=== PATIENT | male | born 1945 | race Caucasian/White ===

== ENCOUNTER 2018-06-03 10:07 | Emergency (ER) | payer OTHER ==
[2018-06-03 10:11] VITALS: RESP 18
--- NOTE | 2018-06-03 10:40 | ED ---
Extremity Problem HPI - General Chief complaint: Extremity Problem,Nontraumatic Stated complaint: RT KNEE PAIN AND SWELLING Time Seen by Provider: 06/03/18 10:15 Source: patient, RN notes reviewed, old records reviewed Mode of arrival: wheelchair Limitations: physical limitation - History of Present Illness Initial comments: Patient is a 72-year-old male who complains of right knee pain and medial swelling for the past month. He had a left [id number] amputee from [place]. Patient states that he has always had chronic wear and tear of the right knee. Patient reports he has not seen an orthopedic doctor. Patient states that he has no peripheral paresthesias. He denies any known trauma to the knee. Patient denies any thigh or hip pain. - Related Data Home Medications Medication Instructions Recorded Confirmed Losartan-Hctz 50-12.5 mg [Hyzaar 1 tab PO DAILY 06/03/18 06/03/18 50-12.5] Multivitamins, Thera [Multivitamin 1 tab PO DAILY 06/03/18 06/03/18 (formulary)] Naproxen Sodium [Aleve] 660 mg PO DAILY PRN 06/03/18 06/03/18 Simvastatin [Zocor] 20 mg PO DAILY 06/03/18 06/03/18 amLODIPine [Norvasc] 10 mg PO DAILY 06/03/18 06/03/18 Previous Rx's Medication Instructions Recorded Naproxen [Naprosyn] 500 mg PO Q12HR #20 tab 06/03/18 Allergies Allergy/AdvReac Type Severity Reaction Status Date / Time No Known Allergies Allergy Verified 06/03/18 10:30 Review of Systems ROS Statement: Those systems with pertinent positive or pertinent negative responses have been documented in the HPI. ROS Other: All systems not noted in ROS Statement are negative. Past Medical History Past Medical History: Hyperlipidemia, Hypertension Additional Past Medical History / Comment(s): prosthetic leg History of Any Multi-Drug Resistant Organisms: None Reported Past Surgical History: Appendectomy, Orthopedic Surgery Additional Past Surgical History / Comment(s): LBKA Past Psychological History: No Psychological Hx Reported Smoking Status: Former smoker Past Alcohol Use History: Occasional Past Drug Use History: None Reported General Exam - General Exam Comments Initial Comments: 72-year-old male. Alert and oriented. No significant distress. Limitations: physical limitation General appearance: alert, in no apparent distress Head exam: Present: atraumatic, normocephalic, normal inspection Eye exam: Present: normal appearance, PERRL, EOMI. Absent: scleral icterus, conjunctival injection, periorbital swelling ENT exam: Present: normal exam, mucous membranes moist Neck exam: Present: normal inspection. Absent: tenderness, meningismus, lymphadenopathy Respiratory exam: Present: normal lung sounds bilaterally. Absent: respiratory distress, wheezes, rales, rhonchi, stridor Cardiovascular Exam: Present: regular rate, normal rhythm, normal heart sounds. Absent: systolic murmur, diastolic murmur, rubs, gallop, clicks GI/Abdominal exam: Present: soft, normal bowel sounds. Absent: distended, tenderness, guarding, rebound, rigid Extremities exam: Present: other (Patient is a left exfkk-[id number] amputee.) Right Upper Leg exam: Present: normal inspection, full ROM Knee exam: Present: tenderness, swelling (over medial aspect of knee). Absent: normal inspection Lower Leg exam: Present: normal inspection, full ROM Ankle exam: Present: normal inspection, full ROM Neurovascular tendon exam: Present: no vascular compromise Back exam: Present: normal inspection Neurological exam: Present: alert, oriented X3, CN II-XII intact Psychiatric exam: Present: normal affect, normal mood Skin exam: Present: warm, dry, intact, normal color. Absent: rash Course Vital Signs 06/03/18 06/03/18 10:09 11:49 Temperature 97.8 F 97.2 F L Pulse Rate 67 65 Respiratory 18 18 Rate Blood Pressure 153/74 137/72 O2 Sat by Pulse 98 94 L Oximetry Medical Decision Making - Medical Decision Making Asians a 72-year-old male who presents emergency Department today with complaints of right knee pain for the past month. Patient has evidence of significant medial knee effusion. 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 Patient's x-ray shows evidence of possible AVM versus venous insufficiency fracture of the articular surface of the medial condyle. There is medial sided soft tissue swelling concerns her minuscule injury or MCL injury. There is medial and patellofemoral compartment arthrosis. There is moderate knee joint effusion raising suspicion for internal derangement. MRI could further assess. Patient was informed of these findings. Patient was offered knee immobilizer and advised orthopedic follow-up. Discussed taking anti-inflammatory medication and icing the knee. Discussed that he needs to follow with orthopedic in regards to these findings and may need knee replacement. - Radiology Data Radiology results: report reviewed Possible AVM versus insufficiency fracture articular surface of the medial femoral condyle. Medial subsided soft tissue swelling underlying extruded tear of the medial meniscus or MCL. Underlying medial patellar femoral compartment osteoarthritis. Moderate knee effusion raises suspicion for internal derangement. MRI to further assess. Disposition Clinical Impression: Swollen R knee, Femoral abnormality Disposition: HOME SELF-CARE Condition: Good Instructions (If sedation given, give patient instructions): Knee Pain (ED), Swollen Knee Joint (ED) Additional Instructions: Patient has a follow-up with systems specialist. Take the medication as prescribed. Return to emergency department if any alarming signs or symptoms occur. Prescriptions: Naproxen [Naprosyn] 500 mg PO Q12HR #20 tab Is patient prescribed a controlled substance at d/c from ED?: No Referrals: Delfino Mccann MD [Primary Care Provider] - 1-2 days Dwight Bland DO [Doctor of Osteopathic Medicine] - 1-2 days Aldo Bryant DO [Doctor of Osteopathic Medicine] - 1-2 days Time of Disposition: 12:15
--- NOTE | 2018-06-03 11:21 | XR ---
EXAMINATION TYPE: XR knee complete RT DATE OF EXAM: 06/03/2018 COMPARISON: NONE HISTORY: 72-year-old male right knee pain for one month TECHNIQUE: 3 views FINDINGS: Medial sided soft tissue swelling. Degenerative spurring in the medial compartment. Subchondral lucen cy focally along the weightbearing the medial femoral condyle. Moderate knee joint effusion. Extensor mechanism appears intact. Generous spurring patellofemoral compartment. IMPRESSION: 1. Possible AVN versus insufficiency fracture articular surface of the medial femoral condyle. 2. Medial sided soft tissue swelling. There could be underlying extruded tear of the medial meniscus or MCL injury. 3. Underlying medial and patellofemoral compartmental osteoarthrosis. 4. Moderate knee joint effusion raises suspicion for internal derangement. MRI could further assess.
[2018-06-03 11:50] VITALS: BP 137/72; PULSE 65; TEMP 97.2
[2018-06-03] MEDS ORDERED: ACET/COD 300 MG/30 MG STARTER PACK 6 TAB BTL PO STA (12:15)
== END 2018-06-03 12:33 | disposition home or self-care (01) ==
LOC: EC 10:07
DX: M79.89 Other specified soft tissue disorders (principal); M89.8X5 Other specified disorders of bone, thigh; M25.461 Effusion, right knee; M17.11 Unilateral primary osteoarthritis, right knee; E78.5 Hyperlipidemia, unspecified; I10 Essential (primary) hypertension; Z87.891 Personal history of nicotine dependence; Z79.899 Other long term (current) drug therapy; Z89.612 Acquired absence of left leg above knee
CPT/HCPCS: 73562; 99284; L1830

== ENCOUNTER → 2018-06-30 | Outpatient (CLI) | payer OTHER ==
--- NOTE | 2018-07-01 13:15 | MR ---
EXAMINATION TYPE: MR knee RT wo con DATE OF EXAM: 06/30/2018 COMPARISON: Right knee x-rays dated 06/03/2018 HISTORY: Rt knee pain x 6 months, OA TECHNIQUE: Multiplanar, multisequence imaging of the right knee is performed without IV contrast. FINDINGS: MEDIAL MENISCUS: There is meniscal degeneration of the medial meniscus in addition to a radial tear o f the free air and longitudinal tear of the body extending into the posterior horn with associated 5 mm meniscal extrusion. LATERAL MENISCUS: Anterior and posterior horns are intact without tear. CRUCIATE LIGAMENTS: There is a near full-thickness tear of the anterior cruciate ligament with only d iminutive fibers remaining. Posterior cruciate ligament appears intact and unremarkable. COLLATERAL LIGAMENTS: The medial collateral ligament and lateral collateral ligament complex are inta ct. There is high signal overlying the medial collateral ligament and deep to the medial collateral l igament without discontinuity relating to mid grade strain. Soft tissue swelling also seen overlying the medial collateral ligament. EXTENSOR MECHANISM: Visualized quadriceps and patellar tendons are intact. EFFUSION: There is a small suprapatellar joint effusion with minimal complexity indicating synovitis . There is a focal protrusion of this complex fluid medial to the vastus medialis with surrounding in tramuscular edema. POPLITEAL CYST: No popliteal/hart cyst. TRICOMPARTMENT SPACES: There is medial compartment joint space narrowing and small tricompartmental o steophytes. CARTILAGE: There is full-thickness cartilaginous loss of the medial femoral condyle in its weightbear ing surface measuring 2.8 x 2.4 cm and of the corresponding tibial plateau measuring approximately 1. 8 cm. There is signal heterogeneity the remaining anterior femoral condyle and medial tibial plateau cartilage. In the lateral compartment there is generalized heterogeneity and thinning of the cartilage without f ocal defect. In the patellofemoral compartment there is only mild heterogeneity of the patellofemoral cartilage with slight undermining of the trochlea. BONE MARROW SIGNAL: There is a focal 1.3 cm osseous defect with associated surrounding bone marrow ed natalia of the weightbearing surface of the medial femoral condyle. Suggesting advanced subchondral insuf ficiency fracture. There is also multifocal bone marrow edema within the medial tibial plateau and to a lesser degree of the lateral tibial plateau and lateral femoral condyle. IMPRESSION: 1. Curvilinear 1.3 cm osseous defect of the weightbearing surface of the medial femoral condyle with associated bone marrow edema is most suggestive of an advanced subchondral insufficiency fracture. Ad ditional multifocal bone marrow edema most pronounced within the medial tibial plateau and to a lesse r degree at the lateral tibial plateau and lateral femoral condyle are also seen. 2. Moderate tricompartmental arthrosis and severe chondrosis of the medial compartment with mild cyrus drosis of the lateral and patellofemoral compartments. 3. Complex suprapatellar joint effusion without complexity indicating synovitis and focal protrusion of the medial joint space deep to the vastus medialis resulting in surrounding intramuscular edema. 4. Medial meniscal complex tear with a radial tear and longitudinal tear of the body and posterior ho rn and meniscal extrusion. 5. High-grade partial-thickness tear of the anterior cruciate ligament. 6. Increased signal superficial and deep to the medial collateral ligament suggesting a grade sprain.
== END ==
LOC: RADMRIMAIN 14:57
PROVIDERS: ATTEND Orthopaedic Surgery Sports Medicine
DX: M17.11 Unilateral primary osteoarthritis, right knee (principal); M25.861 Other specified joint disorders, right knee; M65.861 Other synovitis and tenosynovitis, right lower leg; S83.241A Other tear of medial meniscus, current injury, right knee, initial encounter; S83.511A Sprain of anterior cruciate ligament of right knee, initial encounter

== ENCOUNTER 2022-02-20 08:47 | Day surgery (SDC) | payer OTHER ==
[2022-02-15 13:26] VITALS: BMI 33.7
[~2022-02-20 08:47] MED LIST: LACTATED RINGERS 1,000 ML IV SCH; LIDOCAINE 1% (10MG/ML) FOR IV START INTRADERMA PRN
[2022-02-20 09:12] VITALS: TEMP 97.5
[2022-02-20] MEDS ORDERED: PROPOFOL 10 MG/ML 20 ML VIAL IV ONE (09:59)
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
--- NOTE | 2022-02-20 10:34 | P.PCN ---
Date of Procedure: 02/20/22 Procedure(s) Performed: PREOPERATIVE DIAGNOSIS: Colon cancer screening, personal history of polyps POSTOPERATIVE DIAGNOSIS: Rectal polyps 2, diverticulosis PROCEDURE: Colonoscopy with snare polypectomy ANESTHESIA: MAC SURGEON: Carrillo Downing M.D. SPECIMENS: Rectal polyp ENDOSCOPIC PROCEDURE: The patient was placed on the endoscopy table in the left decubitus position. The Olympus colonoscope was inserted into the anus and passed under direct visualization to the base of the cecum. The appendiceal o rifice was visualized. From that point the scope was slowly withdrawn inspecting all surfaces carefully. There were no neoplastic inflammatory or polypoid lesions throughout the cecum, ascending, transverse, descending, and sigmoid colon. In the rectum there were 2 small polyps seen. The patient had mild left-sided diverticulosis. Digital rectal examination was normal. The patient was taken to the recovery room in stable condition per anesthesia guidelines. RECOMMENDATIONS: Await biopsy results. Repeat colonoscopy 5 years.
[2022-02-20 11:01] VITALS: BP 147/87; PULSE 64; RESP 15
== END 2022-02-20 11:30 | disposition home or self-care (01) ==
LOC: ORWHC2ENDO 08:47
PROVIDERS: ATTEND Surgery
DX: Z12.11 Encounter for screening for malignant neoplasm of colon (principal); K62.1 Rectal polyp; K57.30 Diverticulosis of large intestine without perforation or abscess without bleeding; Z80.0 Family history of malignant neoplasm of digestive organs; I10 Essential (primary) hypertension; M19.90 Unspecified osteoarthritis, unspecified site; E78.5 Hyperlipidemia, unspecified; H91.90 Unspecified hearing loss, unspecified ear; Z97.16 Presence of artificial legs, bilateral (complete) (partial); Z90.49 Acquired absence of other specified parts of digestive tract; Z98.890 Other specified postprocedural states; Z96.651 Presence of right artificial knee joint; Z87.891 Personal history of nicotine dependence; F10.20 Alcohol dependence, uncomplicated; Z79.891 Long term (current) use of opiate analgesic; Z79.02 Long term (current) use of antithrombotics/antiplatelets; Z79.01 Long term (current) use of anticoagulants; Z79.1 Long term (current) use of non-steroidal anti-inflammatories (NSAID)
CPT/HCPCS: 88305; 45385; J2704

== ENCOUNTER → 2022-09-25 | Outpatient (CLI) | payer OTHER ==
--- NOTE | 2022-09-25 09:14 | US ---
EXAMINATION TYPE: US abdomen complete DATE OF EXAM: 09/25/2022 COMPARISON: NONE CLINICAL INDICATION: Male, 76 years old with history of R11.2 NAUSEA WITH VOMITING R10.84 ABD PAIN; p ain rlq TECHNIQUE: Multiple sonographic images of the abdomen are obtained. FINDINGS: EXAM MEASUREMENTS: Liver Length: 18.9 cm Gallbladder Wall: .2 cm CBD: .6 cm Spleen: 10.2 cm Right Kidney: 11.4 x 4.7 x 4.6 cm Left Kidney: 11.0 x 5.1 x 4.0 cm [employer] NOTES: Pancreas: Obscured by bowel gas Liver: Increased attenuation anechoic area seen left lobe 1.6 x 1.0 x 1.7 cm. Gallbladder: No stones seen Evidence for sonographic Richmond's sign: no CBD: wnl Spleen: wnl Right Kidney: No hydronephrosis or masses seen Left Kidney: No hydronephrosis or masses seen Upper IVC: Limited due to bowel gas. Abd Aorta: Limited due to bowel gas. The pancreas is obscured by overlying bowel gas. Liver demonstrates increased attenuation with a simp le cyst identified in the left hepatic lobe measuring 1.7 cm. The intrahepatic portion of the IVC and aorta are obscured by overlying bowel gas. Gallbladder is unremarkable without evidence for cholelit hiasis, pedicles fluid or wall thickening. Common bile duct is unremarkable. The spleen is unremarka ble. Kidneys are symmetric and free of hydronephrosis. No renal lesions are seen. IMPRESSION: 1. No acute process. 2. Hepatic steatosis. 3. Simple hepatic cyst.
== END | disposition home or self-care (01) ==
LOC: RADUSWWP 07:30
PROVIDERS: ATTEND Internal Medicine
DX: K76.0 Fatty (change of) liver, not elsewhere classified (principal); K76.89 Other specified diseases of liver; R10.84 Generalized abdominal pain; R11.2 Nausea with vomiting, unspecified
CPT/HCPCS: 76700